=== PATIENT | female | born 1970 ===

== ENCOUNTER 2017-12-16 13:57 | Outpatient (CLI) | payer OTHER ==
[2017-12-17] MEDS ORDERED: VASOTEC10 MG PO (12:09)
[2017-12-17] MEDS ORDERED: ZANTAC300 MG PO (12:10)
[2017-12-17] MEDS ORDERED: AMITIZA24 MCG PO (12:10)
[2017-12-17] MEDS ORDERED: PREVACID30 MG PO (12:10)
== END 2017-12-16 14:00 | disposition home or self-care (01) ==
LOC: LAB 13:57
DX: D68.8 Other specified coagulation defects (principal); D64.89 Other specified anemias; R94.31 Abnormal electrocardiogram [ECG] [EKG]; J45.998 Other asthma

== ENCOUNTER 2017-12-17 09:45 | Inpatient (IN) | payer OTHER ==
[~2017-12-17] VITALS: Ht 172.7 cm; Wt 81.6 kg
[2017-12-17] MEDS ORDERED: VASOTEC10 MG PO (12:09)
[2017-12-17] MEDS ORDERED: PREVACID30 MG PO (12:10)
[2017-12-17] MEDS ORDERED: AMITIZA24 MCG PO (12:10)
[2017-12-17] MEDS ORDERED: ZANTAC300 MG PO (12:10)
== END 2017-12-27 12:11 | disposition home or self-care (01) | DRG 743 ==
LOC: OB/GYN 12-24 07:00 → O/R 12-24 09:00 → SURG-SUITE 12-24 09:00 → OB/GYN 12-24 09:45 → SURG-SUITE 12-24 13:56
PROVIDERS: Obstetrics & Gynecology; Specialist
PROC: 0UT70ZZ Resection of Bilateral Fallopian Tubes, Open Approach (ICD-10-PCS; 2017-12-24)
PROC: 0UT20ZZ Resection of Bilateral Ovaries, Open Approach (ICD-10-PCS; 2017-12-24)
PROC: 0DTJ0ZZ Resection of Appendix, Open Approach (ICD-10-PCS; 2017-12-24)
PROC: 0UT90ZL Resection of Uterus, Supracervical, Open Approach (ICD-10-PCS; principal; 2017-12-24 07:00)
PROC: 0DNW0ZZ Release Peritoneum, Open Approach (ICD-10-PCS; 2017-12-24 07:00)
DX: N80.2 Endometriosis of fallopian tube (principal); N80.1 Endometriosis of ovary; N80.5 Endometriosis of intestine; K38.1 Appendicular concretions; D64.89 Other specified anemias; N83.11 Corpus luteum cyst of right ovary; N70.11 Chronic salpingitis